=== PATIENT | male | born 1955 | race Caucasian/White ===

== ENCOUNTER 2017-10-11 07:08 | Emergency (ER) | payer OTHER ==
[~2017-10-11] VITALS: Ht 175.3 cm; Wt 94.5 kg
[~2017-10-11 07:08] MED LIST: ADVAIR HFA120 INHALA IH; ASPIR 8181 M1 PO; ASPIR-LOW81 MG PO; AUGMENTIN500 MG PO; B COMPLETE1 EACH PO; BENICAR20 MG PO; FLOMAX0.4 MG PO; FLUOXETINE HCL20 M1 PO; HYDREA500 MG PO; KEFLEX500 MG PO; LEVOFLOXACIN750 MG PO; MONTELUKAST SOD10 MG PO; NORCO 5/3251 TABLET PO; PLAVIX75 MG PO; PRAVACHOL40 MG PO; PREDNISONE10 MG PO; PROZAC20 MG PO; ZITHROMAX250 MG PO; [UNRECOGNIZED DRUG - REMARK]
[2017-10-11 08:05] LABS: HEMATOCRIT 50.2 % (38.0-50.0); HEMOGLOBIN 16.7 G/DL (12.5-16.6); MCH 27.7 PG (29.0-34.0); MCHC 33.3 G/DL (30.0-36.0); MCV 83.3 FL (86-99); PLATELET COUNT 434 K/uL (156-360); RBC DIS.WIDTH-CV 13.2 % (11.8-14.6); RBC DIS.WIDTH-SD 39.8 % (39-53); RED BLOOD COUNT 6.03 M/uL (4.00-5.50); WHITE BLOOD COUNT 6.2 K/uL (4.1-10.2)
[2017-10-11] MEDS ORDERED: AUGMENTIN875 MG PO (08:06)
[2017-10-11 08:08] LABS: INTER. NORMALIZED RATIO 1.1
[2017-10-11 08:10] LABS: PTT 31.5 SEC (25-37)
[2017-10-11 08:41] VITALS: BP 150/83
== END 2017-10-11 08:41 | disposition home or self-care (01) ==
LOC: EME 07:08
PROVIDERS: Emergency Medicine
PROC: 2Y41X5Z Packing of Nasal Region using Packing Material (ICD-10-PCS; principal; 2017-10-11)
DX: R04.0 Epistaxis (principal); I10 Essential (primary) hypertension; Z85.828 Personal history of other malignant neoplasm of skin; Z86.73 Personal history of transient ischemic attack (TIA), and cerebral infarction without residual deficits; Z79.82 Long term (current) use of aspirin; Z79.02 Long term (current) use of antithrombotics/antiplatelets
CPT/HCPCS: 85027; 85610; 85730; 99281; 99283

== ENCOUNTER 2017-10-14 09:55 | Emergency (ER) | payer OTHER ==
[~2017-10-14] VITALS: Ht 175.3 cm; Wt 92.0 kg
[~2017-10-14 09:55] MED LIST changes: +AUGMENTIN875 MG PO
[2017-10-14 13:10] VITALS: BP 156/91
== END 2017-10-14 13:20 | disposition home or self-care (01) ==
LOC: EME 09:55
DX: R04.0 Epistaxis (principal); Z48.00 Encounter for change or removal of nonsurgical wound dressing
CPT/HCPCS: 99281; 99283